=== PATIENT | male | born 1950 ===

== ENCOUNTER 2023-07-02 12:15 | Inpatient (IN) | payer OTHER ==
[~2023-07-02] VITALS: Ht 167.6 cm; Wt 77.1 kg
[2023-07-02] MEDS ORDERED: TIADYLT ER240 MG (14:37)
[2023-07-02] MEDS ORDERED: METFORMIN HCL850 MG (14:37)
[2023-07-02] MEDS ORDERED: PRAVASTATIN SOD40 MG (14:38)
[2023-07-02] MEDS ORDERED: HYZAAR 100-251 EACH (14:38)
[2023-07-02] MEDS ORDERED: TAMS0.4C (14:38)
[2023-07-02] MEDS ORDERED: AIRDUO RESPICL1 EAC1 (14:39)
[2023-07-02] MEDS ORDERED: FUSION PLUS CA1 EACH (14:39)
[2023-07-10 19:44] LABS: HEMATOCRIT 29.2 % (39.0-48.0); HEMOGLOBIN 10.1 g/dL (13-16.00); MEAN CELL VOLUME 89.5 fL (80.0-100.00); MEAN CORPUSCULAR HEMOGLOBIN 30.8 pg (27.00-32.0); MEAN CORPUSCULAR HGB CONC 34.4 g/dl (32.0-36.0); PLATELET COUNT 292 K/uL (150-450); RED BLOOD COUNT 3.27 M/uL (4.00-6.00); RED CELL DISTRIBUTION WIDTH 14.2 % (11.5-14.5)
[2023-07-11 06:43] LABS: ABG PO2 80.5 mmHg (80-100); ABG pCO2 36.2 mmHg (35-45)
[2023-07-11 06:44] LABS: BICARBONATE 24.6 mmol/l (23-25); SaO2 96.4 %; Tco2 25.8 mmol/l; allen test SATISFACTORY; o2 21 %; puncture site RADIAL LEFT
[2023-07-11 08:15] LABS: HEMATOCRIT 27.3 % (39.0-48.0); HEMOGLOBIN 9.4 g/dL (13-16.00); MEAN CELL VOLUME 89.7 fL (80.0-100.00); MEAN CORPUSCULAR HEMOGLOBIN 30.8 pg (27.00-32.0); MEAN CORPUSCULAR HGB CONC 34.4 g/dl (32.0-36.0); PLATELET COUNT 275 K/uL (150-450); RED BLOOD COUNT 3.04 M/uL (4.00-6.00); RED CELL DISTRIBUTION WIDTH 13.9 % (11.5-14.5)
[2023-07-11 09:13] LABS: ALBUMIN 3.3 gm/dL (3.4-5.0); CALCIUM 8.5 mg/dL (8.5-10.1); CREATININE SERUM 1.01 mg/dL (0.70-1.30); GFR 72.82; PHOSPHOROUS 3.3 mg/dL (2.5-4.9); POTASSIUM 3.8 mEq/L (3.5-5.1)
[2023-07-11 15:04] LABS: MEAN CELL VOLUME 90.3 fL (80.0-100.00); PLATELET COUNT 210 K/uL (150-450); RED BLOOD COUNT 2.26 M/uL (4.00-6.00); RED CELL DISTRIBUTION WIDTH 13.8 % (11.5-14.5)
[2023-07-11 15:05] LABS: HEMATOCRIT 20.4 % (39.0-48.0); MEAN CORPUSCULAR HEMOGLOBIN 31.4 pg (27.00-32.0)
[2023-07-11 15:06] LABS: HEMOGLOBIN 7.1 g/dL (13-16.00)
[2023-07-12 05:11] LABS: CALCIUM 7.9 mg/dL (8.5-10.1); CREATININE SERUM 0.95 mg/dL (0.70-1.30); GFR 78.15; MAGNESIUM 1.7 mg/dL (1.8-2.4); PHOSPHOROUS 2.8 mg/dL (2.5-4.9); POTASSIUM 3.5 mEq/L (3.5-5.1)
[2023-07-12 05:13] LABS: HEMATOCRIT 24.5 % (39.0-48.0); MEAN CELL VOLUME 87.9 fL (80.0-100.00); MEAN CORPUSCULAR HEMOGLOBIN 30.8 pg (27.00-32.0); MEAN CORPUSCULAR HGB CONC 35.2 g/dl (32.0-36.0); PLATELET COUNT 211 K/uL (150-450); RED BLOOD COUNT 2.79 M/uL (4.00-6.00); RED CELL DISTRIBUTION WIDTH 15.8 % (11.5-14.5)
[2023-07-12 05:14] LABS: HEMOGLOBIN 8.6 g/dL (13-16.00)
[2023-07-12 06:22] LABS: ABG PH 7.413 (7.35-7.45); ABG PO2 75.4 mmHg (80-100); ABG pCO2 40.6 mmHg (35-45); BASE EXCESS 0.7 mmol/l; BICARBONATE 25.3 mmol/l (23-25); SaO2 95.1 %
[2023-07-12 06:23] LABS: Tco2 26.6 mmol/l; allen test SATISFACTORY; o2 32 %; puncture site RADIAL LEFT
[2023-07-13 11:30] LABS: HEMATOCRIT 33.6 % (39.0-48.0); HEMOGLOBIN 11.3 g/dL (13-16.00); MEAN CELL VOLUME 88.7 fL (80.0-100.00); MEAN CORPUSCULAR HGB CONC 33.8 g/dl (32.0-36.0); PLATELET COUNT 212 K/uL (150-450); RED BLOOD COUNT 3.78 M/uL (4.00-6.00); RED CELL DISTRIBUTION WIDTH 15.9 % (11.5-14.5)
[2023-07-13 11:31] LABS: HEMATOCRIT 32.7 % (39.0-48.0); HEMOGLOBIN 11.3 g/dL (13-16.00); MEAN CELL VOLUME 87.8 fL (80.0-100.00); MEAN CORPUSCULAR HEMOGLOBIN 30.2 pg (27.00-32.0); MEAN CORPUSCULAR HGB CONC 34.4 g/dl (32.0-36.0); PLATELET COUNT 221 K/uL (150-450); RED BLOOD COUNT 3.73 M/uL (4.00-6.00); RED CELL DISTRIBUTION WIDTH 15.6 % (11.5-14.5)
[2023-07-13 11:58] LABS: CALCIUM 8.5 mg/dL (8.5-10.1); CREATININE SERUM 0.96 mg/dL (0.70-1.30); GFR 77.21; MAGNESIUM 1.9 mg/dL (1.8-2.4); PHOSPHOROUS 2.3 mg/dL (2.5-4.9); POTASSIUM 3.7 mEq/L (3.5-5.1)
[2023-07-15] MEDS ORDERED: LEVOFLOXACIN500 MG PO (11:29)
[2023-07-15] MEDS ORDERED: INTESTINEX680 M1 PO (11:29)
[2023-07-15] MEDS ORDERED: LEVSIN/SL0.125 MG SL (11:29)
== END 2023-07-15 11:53 | disposition home or self-care (01) | DRG 330 ==
LOC: SURG 07-10 07:00 → O/R 07-10 09:54 → SURG 07-10 12:15 → SURH 07-10 23:05 → SURG 07-11 10:13
PROVIDERS: Internal Medicine Geriatric Medicine; ADMIT Colon & Rectal Surgery; ATTEND Colon & Rectal Surgery
PROC: 0DBP4ZZ Excision of Rectum, Percutaneous Endoscopic Approach (ICD-10-PCS; 2023-07-10)
PROC: 07BB4ZZ Excision of Mesenteric Lymphatic, Percutaneous Endoscopic Approach (ICD-10-PCS; 2023-07-10)
PROC: 0DJD8ZZ Inspection of Lower Intestinal Tract, Via Natural or Artificial Opening Endoscopic (ICD-10-PCS; 2023-07-10)
PROC: 0DTN4ZZ Resection of Sigmoid Colon, Percutaneous Endoscopic Approach (ICD-10-PCS; principal; 2023-07-10 07:00)
PROC: 30233N1 Transfusion of Nonautologous Red Blood Cells into Peripheral Vein, Percutaneous Approach (ICD-10-PCS; 2023-07-11)
PROC: BW21YZZ Computerized Tomography (CT Scan) of Abdomen and Pelvis using Other Contrast (ICD-10-PCS; 2023-07-14)
PROC: 4A12X4Z Monitoring of Cardiac Electrical Activity, External Approach (ICD-10-PCS; 2023-07-15)
DX: C18.7 Malignant neoplasm of sigmoid colon (principal); D62 Acute posthemorrhagic anemia; K92.1 Melena; K91.870 Postprocedural hematoma of a digestive system organ or structure following a digestive system procedure; R59.0 Localized enlarged lymph nodes; G47.33 Obstructive sleep apnea (adult) (pediatric); I12.9 Hypertensive chronic kidney disease with stage 1 through stage 4 chronic kidney disease, or unspecified chronic kidney disease; E11.22 Type 2 diabetes mellitus with diabetic chronic kidney disease; N18.30 Chronic kidney disease, stage 3 unspecified